=== PATIENT | male | born 1960 | race Caucasian/White ===

== ENCOUNTER 2019-02-22 16:21 | Emergency (ER) | payer SELFPAY ==
[~2019-02-22] VITALS: Ht 175.3 cm; Wt 138.3 kg
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
--- OUTSIDE RECORDS SUMMARY | 2019-02-22 16:26 | XMS REPORT ---
Author Author [facility] Medical Staff Organization [facility] Address [address] [place], [place] [id number] Phone [phone] Summary purpose CCDA Sent to NDE Chief Complaint and Reason for Visit Admit Diagnosis 1 DM2/NOS UNCOMP NSU Problem list No authorized problems tracked for continuity of care are available for this vis it. Encounters No authorized problems tracked for encounter diagnoses are available for this vi sit. Medications No home medications recorded for this patient visit Allergies, adverse reactions, alerts No allergy information is available for this patient. Immunizations No immunizations recorded for this patient visit Relevant diagnostic tests and/or laboratory data RESULTS CBC [id number]:00 Result Normal Range Units White Blood Count 10.9 4.5-13.0 K/uL RBC L 4.32 4.5-5.5 x 106/uL Hemoglobin L 12.7 14-17 g/dl Hematocrit L 39.9 41-50 % MCV 92.4 80-100 FL MCH 29.4 26-34 pg MCHC 31.8 31-37 g/dl RDW H 14.7 < 14.5 % Platelet 260 150-450 K/uL MPV 10.1 7.4-12.2 FL Neutrophil % 61.1 34-66 % Neutrophil # 6.6 1.5-8.6 K/uL Lymphocyte % 26.6 24-45 % Lymphocyte # 2.9 1.1-5.9 K/uL Monocyte % H 8.0 3-6 % Monocyte # H 0.9 0.1-0.8 K/uL Eosinophil % H 4.0 0-3 % Eosinophil # 0.4 0.0-0.4 K/uL Basophil % 0.3 0-1 % Basophil # 0.0 0.0-0.2 K/uL Chemistry Group [id number]:13:00 Result Normal Range Units Sodium 136 136-144 mmol/L Potassium 4.4 3.5-5.2 mmol/L Chloride 103 97-107 mmol/L CO2 25.7 21-32 mmol/L AGAP 7.3 5-15 mmol/L Glucose H 289 74-106 mg/dl Creatinine 0.9 0.51-1.17 mg/dl BUN/Creatinine Ratio 20.0 12-20 Ratio BUN 18 7-18 mg/dl Osmolality 294 280-300 Calcium L 8.3 8.5-10.1 mg/dl Total Protein 6.7 6.4-8.2 g/dl Globulin 3.4 2.3-3.5 g/dl Albumin L 3.3 3.4-5.0 g/dl A/G Ratio 1.0 1.0-2.5 Ratio Bilirubin, Total 0.2 0.2-1.0 mg/dl ALP 84 46-116 U/L AST L 12 15-37 U/L ALT L 22 30-65 U/L eGFR > 60 > 60 ml/min. Triglyceride 150 0-150 mg/dl Cholesterol 165 0-200 mg/dl LDL 93 0-99 mg/dl HDL 39 35-60 mg/dl Cholesterol/HDL 4 0.0-6.3 Ratio Hemoglobin A1C H 10.5 4.5-6.2 % PSA 0.56 0-4.0 ng/ml History of procedures Procedure Code Code Type Description Date Performed Performing Physician 97624 CPT-4 COMPLETE CBC W/AUTO DIFF WBC 10-10-2014 [facility] 55362 CPT-4 COMPREHEN METABOLIC PANEL 10-10-2014 [facility] 57857 CPT-4 LIPID PANEL 10-10-2014 [facility] 17785 CPT-4 GLYCOSYLATED HEMOGLOBIN TEST 10-10-2014 [facility] 14107 CPT-4 ASSAY OF PSA TOTAL 10-10-2014 [facility] 24278 CPT-4 ROUTINE VENIPUNCTURE 10-10-2014 [facility] Functional status No functional or cognitive status observations are available for this visit. Vital signs No authorized vital signs are available for this visit. Social history No Social History or smoking status observations were recorded for this visit. ( Unknown if ever smoked.) Treatment Plan No treatment plan text is available for this visit. Hospital discharge instructions No discharge instruction text is available for this visit.
--- NOTE | 2019-02-22 16:51 | NUR ---
no room in the er . i am starting cares in fast track. pt has stage 3 open ulcer left medial ankle that smells and has brownish drainage. pt with ? cellulitis. . pt alert gcs 15 here with family x 1. left leg and foot has pitting edema and is pinkish red and warm to hot to touch. positive pulse and sensation left foot.
--- NOTE | 2019-02-22 16:56 | NUR ---
wound cx by me
--- NOTE | 2019-02-22 17:14 | NUR ---
labs blood cx and lactic and wound cx to lab by me
[2019-02-22 17:22] LABS: BASOPHILS # (AUTO) 0.2 10^3/uL (0.0-0.1); BASOPHILS % (AUTO) 0 % (0-10); EOSINOPHILS % (AUTO) 0 % (0-10); HEMATOCRIT 36 % (40-54); HEMOGLOBIN 11.3 G/DL (13.3-17.7); LYMPHOCYTES # (AUTO) 88.9 X 10^3 (1.0-4.0); LYMPHOCYTES % (AUTO) 88 % (12-44); MEAN CORPUSCULAR HEMOGLOBIN 31 PG (25-34); MEAN CORPUSCULAR HGB CONC 31 G/DL (32-36); MEAN CORPUSCULAR VOLUME 98 FL (80-99); MEAN PLATELET VOLUME 10.7 FL (7.4-10.4); MONOCYTES # (AUTO) 1.9 X 10^3 (0.0-1.0); MONOCYTES % (AUTO) 2 % (0-12); NEUTROPHILS # (AUTO) 10.4 X 10^3 (1.8-7.8); NEUTROPHILS % (AUTO) 10 % (42-75); PLATELET COUNT 276 10^3/uL (130-400); RED CELL DISTRIBUTION WIDTH 13.9 % (10.0-14.5)
--- NOTE | 2019-02-22 17:27 | NUR ---
report to freddy king
[2019-02-22 17:29] LABS: WHITE BLOOD COUNT 101.4 10^3/uL (4.3-11.0)
[2019-02-22 17:36] LABS: PROTHROMBIN TIME PATIENT 13.9 SEC (12.2-14.7)
[2019-02-22 17:46] LABS: ALANINE AMINOTRANSFERASE 11 U/L (0-55); ALKALINE PHOSPHATASE 105 U/L (40-136); ANISOCYTOSIS SLIGHT; ATYPICAL LYMPHOCYTES 4 %; BAND NEUTROPHILS 0 %; BILIRUBIN,TOTAL 0.6 MG/DL (0.1-1.0); BUN/CREATININE RATIO 15; CALCIUM 9.8 MG/DL (8.5-10.1); CARBON DIOXIDE 21 MMOL/L (21-32); CHLORIDE 94 MMOL/L (98-107); EOSINOPHILS % (MANUAL) 0 %; GFR ESTIMATED > 60; LYMPHOCYTES % (MANUAL) 80 %; MONOCYTES % (MANUAL) 0 %; NEUTROPHILS % (MANUAL) 16 %; POLYCHROMASIA SLIGHT; POTASSIUM 4.1 MMOL/L (3.6-5.0); SMUDGE CELLS SLIGHT; SODIUM 130 MMOL/L (135-145); TOTAL PROTEIN 7.5 GM/DL (6.4-8.2)
[2019-02-22 17:50] LABS: GLUCOSE 403 MG/DL (70-105)
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
--- NOTE | 2019-02-22 18:24 | Diagnostic Imaging Report ---
INDICATION: Ankle injury and wound. FINDINGS: AP, oblique and lateral views of the left ankle reveal extensive swelling. There is also marginal spurring and corticated fragmentation adjacent to the ankle joint. No definite fracture line or malalignment is detected. IMPRESSION: Degenerative findings may be related to old injuries at the ankle joint. There is ankle swelling however no acute osseous abnormality is detected. Dictated by: Dictated on workstation # [id number]
[2019-02-22] MEDS ORDERED: CLIN300C11 PO (18:44)
[2019-02-22] MEDS ORDERED: LEVO500T2 PO (18:44)
[2019-02-22] MEDS ORDERED: LEVOFLOXACIN 500 MG TAB (LEVAQUIN) PO ONE (18:45)
[2019-02-22] MEDS ORDERED: CLINDAMYCIN 150 MG (CLEOCIN) CAP PO ONE (18:45)
[2019-02-22 19:01] VITALS: BP 133/85
== END 2019-02-22 19:01 | disposition left against medical advice (07) ==
LOC: ER 16:23
DX: L03.116 Cellulitis of left lower limb (principal); C95.90 Leukemia, unspecified not having achieved remission; E11.9 Type 2 diabetes mellitus without complications; Z87.891 Personal history of nicotine dependence; Z90.49 Acquired absence of other specified parts of digestive tract; Z90.89 Acquired absence of other organs; Z87.01 Personal history of pneumonia (recurrent); Z85.72 Personal history of non-Hodgkin lymphomas
CPT/HCPCS: 36415; 73610; 80053; 83605; 85007; 85027; 85610; 85730; 87040; 87070; 87077; 87205

== ENCOUNTER 2020-08-04 02:16 | Emergency (ER) | payer SELFPAY ==
[~2020-08-04 02:16] MED LIST: CLIN300C12 PO; LEVO500T2 PO
[2020-08-04] MEDS ORDERED: TRANEXAMIC ACID 100 MG/ML 10 ML INJECTION ONE ×2 (02:35→03:15)
--- NOTE | 2020-08-04 03:02 | ED EENT ---
History of Present Illness General Chief Complaint: Nasal Problems Stated Complaint: BLOODY NOSE Nursing Triage Note: PT AMBULATES TO ROOM #7 WITH C/O NOSE BLEED. REPORTS NOSE BLEED BEGAN AT APPROX 0100 THIS MORNING WHILE SEATED AT WORK. PT UNABLE TO RECALL PRESCRIBED BLOOD THINNER. COPIOUS AMOUNT OF BLOOD DRAINING FOR L NARE. A&OX4. 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) WHEN NOSE SUDDENLY BEGAN BLEEDING FROM LEFT NARE BEGAN AROUND 0100 AND HAS NOT STOPPED DENIES INJURING HIS NOSE, DENIES PICKING AT NOSE, OR BLOWING OR RUBBING HIS NOSE PT IS ON A BLOOD THINNER--DOES NOT KNOW NAME OF IT ( PLAVIX + ASPIRIN, PER MED LIST LATER PROVIDED BY FAMILY MEMBER ) STATES HE FREQUENTLY GETS MINOR NOSEBLEEDS, THAT STOP AFTER A COUPLE OF MINUTES--HAS NEVER HAD ONE LIKE THIS NO CHANGES IN MEDICATIONS NO FEVER OR RECENT ILLNESS NO RECENT NASAL CONGESTION OR RUNNY NOSE DOES NOT WEAR HOME OXYGEN PT HAD COVID IN APRIL 2020--HOSPITALIZED X 5 DAYS AT [facility] PT HAS CLL--HAS BEEN OFF CHEMO X 1 MONTH, HE STATES HE IS IN REMISSION NOW. PCP: FELICIA BOLAND MO SEPARATIONS SCIENTIST: DR. CHOI AT [facility] ONCOLOGIST: DR. BRARAZA, AT [facility] Allergies and Home Medications Allergies Coded Allergies: No Known Drug Allergies (Unverified , 02/22/19) Home Medications Cefuroxime Axetil 500 Mg Tablet, 500 MG PO BID Prescribed by: ROME ROSALES on 08/04/20 0421 Clindamycin HCl 300 Mg Capsule, 300 MG PO Q6H Prescribed by: DONALD MINER on 02/22/191843 Levofloxacin 500 Mg Tablet, 500 MG PO DAILY Prescribed by: DONALD MINER on 02/22/191843 Patient Home Medication List Home Medication List Reviewed: Yes Review of Systems Review of Systems Constitutional: no symptoms reported; No dizziness Eyes: No Symptoms Reported Nose: see HPI Mouth: no symptoms reported Throat: no symptoms reported Respiratory: no symptoms reported Skin: no symptoms reported Hematologic/Lymphatic: See HPI Immunological/Allergic: no symptoms reported Past Uzioeix-Hbnsqq-Tqyxvk Hx Past Med/Social Hx: Reviewed and Corrections made Patient Social History Alcohol Use: Denies Use Smoking Status: Never a Smoker 2nd Hand Smoke Exposure: No Recent Infectious Disease Expo: No Recent Hopitalizations: No Past Medical History Surgeries: Yes (CARDIAC STENTS) Appendectomy, Cardiac, Coronary Stent, Gallbladder, Tonsillectomy Respiratory: Yes (COVID-19 04/2020-HOSPITALIZED X 5 DAYS AT [facility]) Pneumonia Cardiac: Yes (CARDIAC STENTS; POTS; CHRONIC HYPOTENSION) Coronary Artery Disease, High Cholesterol Neurological: No Gastrointestinal: No Musculoskeletal: No Endocrine: Yes Diabetes, Non-Insulin dep HEENT: No Cancer: Yes (CLL) Leukemia Did You Recieve Any Treatments: Yes What Type of Treatment Did You: Chemotherapy CLL--WAS ON CHEMO UNTIL 06/2020--IN REMISSION, PER PT ON 08/04/20 Integumentary: No Blood Disorders: Yes (AENMIA) Physical Exam Vital Signs Vital Signs - First Documented 08/04/20 02:20 Temp 36.4 Pulse 120 Resp 22 B/P (MAP) 123/75 (91) Pulse Ox 96 O2 Delivery Room Air Height, Weight, BMI Height: 5'9.00" Weight: 305lbs. oz. 138.484865mn; BMI Method:Stated General Appearance: WD/WN, no apparent distress Nose: No sinus tenderness; other (PROFUSE BLEEDING FROM LEFT NARE, WITH VERY LARGE CLOTS IN NOSE AND MOUTH AND POSTERIOR PHARYNX. ) Mouth/Throat: other (CLOTS IN MOUTH AND POSTERIOR PHARYNX) Cardiovascular: tachycardia Respiratory: normal breath sounds Neurologic/Psychiatric: no motor/sensory deficits, alert, normal mood/affect Skin: normal color, warm/dry Procedures/Interventions Nasal : Nasal Location: Left Clots Cleared from Nasal: Patient Blowing Nasal Procedures: Rapid Rhino Progress RAPID RHINO + TXA INSTILLED INTO LEFT NARE WITH NO EVIDENCE OF FURTHER BLEEDING CLOTS CLEARED FROM MOUTH AND POSTERIOR PHARYNX. RAPID RHINO REMOVED AND REPLACED, ALONG WITH TXA INSTILLED INTO LEFT NARE NO BLEEDING ANTERIORLY OR POSTERIORLY Progress/Results/Core Measures Results/Orders Lab Results Laboratory Tests Test 08/04/20 03:30 Range/Units White Blood Count 16.6 H 4.3-11.0 10^3/uL Red Blood Count 4.24 L 4.30-5.52 10^6/uL Hemoglobin 12.0 L 13.3-17.7 g/dL Hematocrit 38 L 40-54 % Mean Corpuscular Volume 90 80-99 fL Mean Corpuscular Hemoglobin 28 25-34 pg Mean Corpuscular Hemoglobin Concent 32 32-36 g/dL Red Cell Distribution Width 17.1 H 10.0-14.5 % Platelet Count 362 130-400 10^3/uL Mean Platelet Volume 11.2 9.0-12.2 fL Immature Granulocyte % (Auto) 0 % Neutrophils (%) (Auto) 81 H 42-75 % Lymphocytes (%) (Auto) 11 L 12-44 % Monocytes (%) (Auto) 6 0-12 % Eosinophils (%) (Auto) 1 0-10 % Basophils (%) (Auto) 0 0-10 % Neutrophils # (Auto) 13.4 H 1.8-7.8 10^3/uL Lymphocytes # (Auto) 1.8 1.0-4.0 10^3/uL Monocytes # (Auto) 1.0 0.0-1.0 10^3/uL Eosinophils # (Auto) 0.2 0.0-0.3 10^3/uL Basophils # (Auto) 0.1 0.0-0.1 10^3/uL Immature Granulocyte # (Auto) 0.1 0.0-0.1 10^3/uL Neutrophils % (Manual) 77 % Lymphocytes % (Manual) 8 % Monocytes % (Manual) 9 % Band Neutrophils 6 % Blood Morphology Comment NORMAL Prothrombin Time 12.9 12.2-14.7 SEC INR Comment 0.9 0.8-1.4 Activated Partial Thromboplast Time 26 24-35 SEC My Orders Orders - ROME ROSALES DO Tranexamic Acid Injection (Cyklokapron I (08/04/20 02:35) Cbc With Automated Diff (08/04/20 02:46) Protime With Inr (08/04/20 02:46) Partial Thromboplastin Time (08/04/20 02:46) Tranexamic Acid Injection (Cyklokapron I (08/04/20 03:15) Manual Differential (08/04/20 03:30) Ed Iv/Invasive Line Start (08/04/20 03:44) Monitor-Rhythm Ecg Trace Only (08/04/20 03:44) Ed Iv/Invasive Line Start (08/04/20 03:44) Ns Iv 1000 Ml (Sodium Chloride 0.9%) (08/04/20 03:45) Medications Given in ED Current Medications Medications Dose Ordered Sig/Kira Route Start Time Stop Time Status Last Admin Dose Admin Tranexamic Acid ONCE ONCE NA 08/04/20 03:15 08/04/20 03:16 DC 08/04/20 02:36 100 MG Vital Signs/I&O 08/04/20 02:20 Temp 36.4 Pulse 120 Resp 22 B/P (MAP) 123/75 (91) Pulse Ox 96 O2 Delivery Room Air Blood Pressure Mean: 91 Progress Progress Note : Progress Note GIVEN IV FLUIDS NO DETERIORATION IN PT'S CONDITION DURING ER STAY BLEEDING CONTROLLED AT DISMISSAL SON LATER BROUGHT IN DISMISSAL PAPERS FROM HIS VISIT WITH HIS SEPARATIONS SCIENTIST 07/13/20--HR 128, BP 55/40 AT THAT VISIT. NO CHANGES IN MEDICATIONS Departure Impression Primary Impression: Left-sided epistaxis Additional Impression: PLAVIX THERAPY Disposition: HOME, SELF-CARE Condition: Improved Departure-Patient Inst. Referrals: SANDRA FRANCE MD, JOHN M MD (PCP/Family) Primary Care Physician Patient Instructions: Nosebleeds (DC) Add. Discharge Instructions: LEAVE PACKING IN PLACE DO NOT BLOW OR RUB OR PICK AT YOUR NOSE FOLLOW UP WITH DR. FRANCE, ENT PHYSICIAN, ON FRIDAY FOR FURTHER CARE--CALL TODAY TO SCHEDULE AN APPOINTMENT RETURN TO ER IF SYMPTOMS WORSEN All discharge instructions reviewed with patient and/or family. Voiced understanding. Scripts Cefuroxime Axetil (Cefuroxime) 500 Mg Tablet 500 MG PO BID, #20 TAB Prov: ROME ROSALES DO 08/04/20 ROME ROSALES DO Aug 04, 2020 03:02
[2020-08-04 03:42] LABS: BASOPHILS # (AUTO) 0.1 10^3/uL (0.0-0.1); BASOPHILS % (AUTO) 0 % (0-10); EOSINOPHILS # (AUTO) 0.2 10^3/uL (0.0-0.3); EOSINOPHILS % (AUTO) 1 % (0-10); HEMATOCRIT 38 % (40-54); LYMPHOCYTES # (AUTO) 1.8 10^3/uL (1.0-4.0); LYMPHOCYTES % (AUTO) 11 % (12-44); MEAN CORPUSCULAR HEMOGLOBIN 28 pg (25-34); MEAN CORPUSCULAR HGB CONC 32 g/dL (32-36); MEAN CORPUSCULAR VOLUME 90 fL (80-99); MEAN PLATELET VOLUME 11.2 fL (9.0-12.2); MONOCYTES % (AUTO) 6 % (0-12); NEUTROPHILS # (AUTO) 13.4 10^3/uL (1.8-7.8); NEUTROPHILS % (AUTO) 81 % (42-75); PLATELET COUNT 362 10^3/uL (130-400); WHITE BLOOD COUNT 16.6 10^3/uL (4.3-11.0)
[2020-08-04] MEDS ORDERED: NS IV 1000 ML 1,000 ML IV SCH (03:45)
[2020-08-04 03:56] LABS: INR 0.9 (0.8-1.4); PROTHROMBIN TIME PATIENT 12.9 SEC (12.2-14.7)
[2020-08-04] MEDS ORDERED: CEFU500T63 PO (04:21)
[2020-08-04 04:22] LABS: BAND NEUTROPHILS 6 %; LYMPHOCYTES % (MANUAL) 8 %; MONOCYTES % (MANUAL) 9 %; NEUTROPHILS % (MANUAL) 77 %; RBC MORPH NORMAL
[2020-08-04 05:00] VITALS: BP 112/80
== END 2020-08-04 05:00 | disposition home or self-care (01) ==
LOC: EDUNIT# 02:16 → ER 02:20
DX: R04.0 Epistaxis (principal); Z79.02 Long term (current) use of antithrombotics/antiplatelets; Z85.6 Personal history of leukemia; Z95.5 Presence of coronary angioplasty implant and graft
CPT/HCPCS: 36415; 85007; 85027; 85610; 85730; 93041

== ENCOUNTER 2023-01-13 05:59 | Emergency (ER) | payer SELFPAY ==
[~2023-01-13] VITALS: Ht 175.2 cm; Wt 144.0 kg
[~2023-01-13 05:59] MED LIST changes: +CEFU500T63 PO; +CLIN-144 PO; -CLIN300C12 PO
[2023-01-13 06:00] VITALS: BP 152/87
[2023-01-13] MEDS ORDERED: LIDOCAINE/EPI 2% 1:100,00 (XYLOCAINE) 20 ML VIAL ONE (06:09)
[2023-01-13] MEDS ORDERED: LIDOCAINE/EPI 2% 1:100,00 (XYLOCAINE) 20 ML VIAL INJ ONE (06:15)
--- NOTE | 2023-01-13 06:29 | ED EENT ---
History of Present Illness General Chief Complaint: Nasal Problems Stated Complaint: NOSE BLEED Nursing Triage Note: Patient states that he is on Plavix. Patient reports that his nose started bleeding at 0300 this morning and he is unable to get it to stop. Patient is bleeding from both nostrils. Patient has had this happen to his in the past. History of Present Illness Date Seen by Provider: Jan 13, 2023 Time Seen by Provider: 06:04 Initial Comments 62-year-old male who is on Plavix and home oxygen of 3 L, is here with complaints of a nosebleed which began at 3 AM this morning. Patient appears to be bleeding through both nostrils and also swallowing some of the blood. Patient stated that he soaked cotton and Afrin and put it inside of both of his nostrils. Patient spit out a couple blood clots that he was swallowing while he was in the ER. Denies falls, trauma, injury. Nosebleed started suddenly. Allergies and Home Medications Allergies Coded Allergies: No Known Drug Allergies (Unverified , 02/22/19) Patient Home Medication List Home Medication List Reviewed: Yes Cefuroxime Axetil (Cefuroxime) 500 Mg Tablet, 500 MG PO BID Prescribed by: ROME ROSALES on 08/04/20 0421 Clindamycin HCl (Clindamycin HCl) 300 Mg Capsule, 300 MG PO Q6H Prescribed by: DONALD MINER on 02/22/19 184 Levofloxacin (Levaquin) 500 Mg Tablet, 500 MG PO DAILY Prescribed by: DONALD MINER on 02/22/191843 Review of Systems Review of Systems Constitutional: no symptoms reported Eyes: No Symptoms Reported Ears: No Symptoms Reported Nose: epistaxis Mouth: no symptoms reported Throat: no symptoms reported Respiratory: no symptoms reported Cardiovascular: no symptoms reported Gastrointestinal: no symptoms reported Musculoskeletal: no symptoms reported Skin: no symptoms reported Neurological: No Symptoms Reported Hematologic/Lymphatic: No Symptoms Reported Immunological/Allergic: no symptoms reported Past Zrhqrbq-Qhcxvu-Jdrxtd Hx Patient Social History Tobacco Use?: No Substance use?: No Alcohol Use?: No Pt feels they are or have been: No Past Medical History Surgeries: Yes (CARDIAC STENTS) Appendectomy, Cardiac, Coronary Stent, Gallbladder, Tonsillectomy Respiratory: Yes (COVID-19 04/2020-HOSPITALIZED X 5 DAYS AT [facility]) Pneumonia Cardiac: Yes (CARDIAC STENTS; POTS; CHRONIC HYPOTENSION) Coronary Artery Disease, High Cholesterol Neurological: No Gastrointestinal: No Musculoskeletal: No Endocrine: Yes Diabetes, Non-Insulin dep HEENT: No Cancer: Yes (CLL) Leukemia Did You Recieve Any Treatments: Yes What Type of Treatment Did You: Chemotherapy Integumentary: No Blood Disorders: Yes (AENMIA) Physical Exam Vital Signs Vital Signs - First Documented 01/13/23 06:00 Temp 37.0 Pulse 110 Resp 20 B/P (MAP) 152/87 (108) Pulse Ox 90 O2 Delivery Room Air Height, Weight, BMI Height: 5'9.00" Weight: 305lbs. oz. 138.824677vk; 46.00 BMI Method:Stated General Appearance: WD/WN, no apparent distress Nose: other (On examination, active bleeding is present from the right nostril from the medial part of the nose.) Mouth/Throat: normal mouth inspection Neck: non-tender, full range of motion, supple Cardiovascular: regular rate, rhythm Respiratory: lungs clear Neurologic/Psychiatric: alert, normal mood/affect, oriented x 3 Skin: normal color Progress/Results/Core Measures Results/Orders My Orders Orders - CELESTINE SHAW MD Lidocaine/Epi 2% 1:100,000 (Xylocaine/Ep (01/13/23 06:15) Lidocaine/Epi 2% 1:100,000 (Xylocaine/Ep (01/13/23 06:09) Medications Given in ED Current Medications Medications Dose Ordered Sig/Kira Route Start Time Stop Time Status Last Admin Dose Admin Lidocaine/ Epinephrine 20 ml ONCE ONCE INJ 01/13/23 06:15 01/13/23 06:16 DC 01/13/23 06:11 20 ML Vital Signs/I&O 01/13/23 06:00 Temp 37.0 Pulse 110 Resp 20 B/P (MAP) 152/87 (108) Pulse Ox 90 O2 Delivery Room Air Blood Pressure Mean: 108 Progress Progress Note : Progress Note 1. EPISTAXIS: - Rhino rocket , 5.5cm soaked in lido with epi and inserted into right nostril with successful cessation of bleeding. - Pt spit out a few clots and is no longer swallowing blood and there is no bleeding coming out of the left nostril. - Pt has Afrin at home -Advised not to blow his nose, and to use a humidifier in his room to keep the air moist. Advised not to pick his nose. - Advised to follow up with ENT within the next 7 days for follow up -The patient was seen in the ED, and treated appropriately to presentation at a specific point in time. Patient is informed that there is a possibility that disease and illness can evolve and change in acuity rapidly or slowly after patient is discharged from the ER. Precautionary advice given to the patient for immediate return to ER if symptoms worsen or do not resolve, and to seek emergency care sooner rather than later. Pt also advised on the importance of PCP follow up and compliance with management and follow up plan with PCP and/or specialist, as this is part of the management plan. Pt verbally expressed understanding. Departure Impression Primary Impression: Epistaxis Disposition: 01 HOME, SELF-CARE Condition: Improved Departure-Patient Inst. Referrals: KAYLIN UNGER MD (PCP/Family) Primary Care Physician ELOISE VAN Patient Instructions: Nosebleeds (DC), Rinsing out your nose with salt water, Humidifiers Add. Discharge Instructions: - Pt has Afrin at home -Advised not to blow his nose, and to use a humidifier in his room to keep the air moist. Advised not to pick his nose. - Advised to follow up with ENT within the next [address] [facility]. Call for appointment All discharge instructions reviewed with patient and/or family. Voiced understanding. CELESTINE SHAW MD Jan 13, 2023 06:29
== END 2023-01-13 06:38 | disposition home or self-care (01) ==
LOC: EDUNIT# 05:59 → ER FS 06:01
DX: R04.0 Epistaxis (principal); Z79.01 Long term (current) use of anticoagulants; Z99.81 Dependence on supplemental oxygen; Z86.16 Personal history of COVID-19; Z28.310 Unvaccinated for COVID-19
CPT/HCPCS: 99282